=== PATIENT | female | born 1995 | race Caucasian/White ===

== ENCOUNTER 2017-05-27 09:30 | Emergency (ER) | payer BC ==
[~2017-05-27] VITALS: Ht 167.6 cm; Wt 77.0 kg
[2017-05-27 09:34] VITALS: BP 140/89; PULSE 114; RESP 20; TEMP 99; O2SAT 99
--- NOTE | 2017-05-27 10:28 | PD ---
HPI Chief Complaint: GI Complaint Time Seen by Provider: 10:28 Travel History International Travel<30 days: No Contact w/Intl Traveler<30days: No Traveled to known affect area: No History of Present Illness HPI 22-year-old female came to the emergency room for not feeling well and flulike symptoms. Patient says that she had the worst hangover however yesterday after she drank a lot of alcohol the day before. She was vomiting the entire day yesterday. Her last vomit was last night. Morning when she woke up her entire body was aching and she was just not feeling well. Patient is awake and answering questions appropriately. Upon asking she says there is no chance she could be . Patient was tachycardic in triage. She is otherwise a healthy person. [facility] Past Medical History Narrative Medical List of her past medical, surgical, social and family history is from the nursing note. ?: Not LMP: 05/24/17 Social History Alcohol Use: Yes Tobacco Use: No Allergies-Medications (Allergen,Severity, Reaction): Coded Allergies: No Known Allergies (Unverified , 05/27/17) Comments No known drug allergies. Reported Meds & Prescriptions Reported Meds & Active Scripts Active Omeprazole 20 Mg Tab 20 Mg PO DAILY Narrative Medication List of her home medications reviewed from the nursing note. Review of Systems Except as stated in HPI: all other systems reviewed are Neg Gastrointestinal: Positive: Nausea, Vomiting Musculoskeletal: Positive: Myalgias Physical Exam Narrative GENERAL: Awake, alert, moderate distress SKIN: Focused skin assessment warm/dry. HEAD: Atraumatic. Normocephalic. EYES: Pupils equal and round. No scleral icterus. No injection or drainage. ENT: No nasal bleeding or discharge. Dry mucous membrane NECK: Trachea midline. No JVD. CARDIOVASCULAR: Regular rate and rhythm. No murmur appreciated. RESPIRATORY: No accessory muscle use. Clear to auscultation. Breath sounds equal bilaterally. GASTROINTESTINAL: Abdomen soft, non-tender, nondistended. Hepatic and splenic margins not palpable. MUSCULOSKELETAL: No obvious deformities. No clubbing. No cyanosis. No edema. NEUROLOGICAL: Awake and alert. No obvious cranial nerve deficits. Motor grossly within normal limits. Normal speech. PSYCHIATRIC: Appropriate mood and affect; insight and judgment normal. Data Data Last Documented VS Vital Signs Date Time Temp Pulse Resp B/P (MAP) Pulse Ox O2 Delivery O2 Flow Rate FiO2 05/27/17 13:38 100 05/27/17 10:54 18 05/27/17 10:54 Room Air 05/27/17 09:34 99.0 114 140/89 (106) Orders Orders Complete Blood Count With Diff (05/27/17 10:34) Comprehensive Metabolic Panel (05/27/17 10:34) Urinalysis - C+S If Indicated (05/27/17 10:34) Iv Access Insert/Monitor (05/27/17 10:34) Ecg Monitoring (05/27/17 10:34) Oximetry (05/27/17 10:34) Ondansetron Inj (Zofran Inj) (05/27/17 10:45) Sodium Chlor 0.9% 1000 Ml Inj (Ns 1000 M (05/27/17 10:34) Sodium Chloride 0.9% Flush (Ns Flush) (05/27/17 10:45) Ed Urine Pregnancytest Poc (05/27/17 10:34) Sodium Chlor 0.9% 1000 Ml Inj (Ns 1000 M (05/27/17 10:45) Ed Discharge Order (05/27/17 12:26) Labs Laboratory Tests Test 05/27/17 10:40 White Blood Count 25.3 TH/MM3 Red Blood Count 4.30 MIL/MM3 Hemoglobin 12.9 GM/DL Hematocrit 37.2 % Mean Corpuscular Volume 86.5 FL Mean Corpuscular Hemoglobin 30.0 PG Mean Corpuscular Hemoglobin Concent 34.7 % Red Cell Distribution Width 12.8 % Platelet Count 292 TH/MM3 Mean Platelet Volume 7.1 FL Neutrophils (%) (Auto) 91.5 % Lymphocytes (%) (Auto) 3.7 % Monocytes (%) (Auto) 4.5 % Eosinophils (%) (Auto) 0.1 % Basophils (%) (Auto) 0.2 % Neutrophils # (Auto) 23.2 TH/MM3 Lymphocytes # (Auto) 0.9 TH/MM3 Monocytes # (Auto) 1.1 TH/MM3 Eosinophils # (Auto) 0.0 TH/MM3 Basophils # (Auto) 0.0 TH/MM3 CBC Comment DIFF FINAL Differential Comment Urine Color YELLOW Urine Turbidity CLEAR Urine pH 6.5 Urine Specific [place] 1.025 Urine Protein TRACE mg/dL Urine Glucose (UA) NEG mg/dL Urine Ketones NEG mg/dL Urine Occult Blood NEG Urine Nitrite NEG Urine Bilirubin NEG Urine Urobilinogen LESS THAN 2.0 MG/DL Urine Leukocyte Esterase NEG Urine RBC LESS THAN 1 /hpf Urine WBC 1 /hpf Urine Squamous Epithelial Cells 6 /hpf Urine Mucus FEW /lpf Microscopic Urinalysis Comment CULT NOT INDICATED Blood Urea Nitrogen 13 MG/DL Creatinine 0.96 MG/DL Random Glucose 104 MG/DL Total Protein 7.0 GM/DL Albumin 3.5 GM/DL Calcium Level 9.1 MG/DL Alkaline Phosphatase 78 U/L Aspartate Amino Transf (AST/SGOT) 21 U/L Alanine Aminotransferase (ALT/SGPT) 28 U/L Total Bilirubin 0.7 MG/DL Sodium Level 135 MEQ/L Potassium Level 3.9 MEQ/L Chloride Level 102 MEQ/L Carbon Dioxide Level 23.5 MEQ/L Anion Gap 10 MEQ/L Estimat Glomerular Filtration Rate 73 ML/MIN MDM Medical Decision Making Medical Screen Exam Complete: Yes Emergency Medical Condition: Yes Medical Record Reviewed: Yes Differential Diagnosis Alcoholic gastritis, dehydration, electrolyte abnormality Narrative Course 12:40 PM blood test results are back. Patient has significant leukocytosis with left shift which I think is stress induced from all the vomiting. Electrolyte are within normal limit. Patient was given 2 L of IV fluid bolus and Zofran. I went back and reassessed her and she says she is feeling much better. I'm comfortable discharging her home with prescription and instructions. Procedures EKG Prior to Arrival: No Diagnosis Primary Impression: Alcoholic gastritis Qualified Codes: K29.20 - Alcoholic gastritis without bleeding Additional Impressions: Dehydration Leukocytosis Qualified Codes: D72.829 - Elevated white blood cell count, unspecified Referrals: Primary Care Physician Additional Instructions: Do not drink alcohol for the next few days. Do not eat anything acidic or spicy. Eat bland diet for next 24-48 hours. Take the medication as per the prescription direction. Return to ER if condition worsens or any other new concerns. Lites follow-up with the primary care. Med/Other Pt SpecificInfo: Prescription(s) given Scripts Omeprazole (Omeprazole) 20 Mg Tab 20 MG PO DAILY, #30 TAB 0 Refills Prov: Dian Avalos MD 05/27/17 Disposition: 01 DISCHARGE HOME Condition: Stable Dian Avalos MD May 27, 2017 10:28
[2017-05-27] MEDS ORDERED: SODIUM CHLOR 0.9% 1000 ML INJ 1,000 ML IV SCH (10:34)
[2017-05-27] MEDS ORDERED: SODIUM CHLORIDE 0.9% FLUSH 10 ML FLUSH IV FLUSH PRN (10:45)
[2017-05-27] MEDS ORDERED: SODIUM CHLOR 0.9% 1000 ML INJ 1,000 ML IV ONE (10:45)
[2017-05-27] MEDS ORDERED: ONDANSETRON HCL 4 MG/2 ML VIAL IVP ONE (10:45)
[2017-05-27 10:54] VITALS: O2SAT 99
[2017-05-27 11:03] LABS: AUTOMATED NEUTROPHIL # 23.2 TH/MM3 (1.8-7.7); BASOPHIL % 0.2 % (0.0-2.0); EOSINOPHIL % 0.1 % (0.0-4.0); HEMATOCRIT 37.2 % (35.0-46.0); HEMOGLOBIN 12.9 GM/DL (11.6-15.3); LYMPH % 3.7 % (9.0-44.0); LYMPHOCYTE # 0.9 TH/MM3 (1.0-4.8); MEAN CELL VOLUME 86.5 FL (80.0-100.0); MEAN CORPUSCULAR HGB CONC 34.7 % (32.0-36.0); MEAN PLATELET VOLUME 7.1 FL (7.0-11.0); MONO % 4.5 % (0.0-8.0); MONOCYTE # 1.1 TH/MM3 (0-0.9); NEUT % 91.5 % (16.0-70.0); PLATELET COUNT 292 TH/MM3 (150-450); RED CELL DISTRIBUTION WIDTH 12.8 % (11.6-17.2); WHITE BLOOD COUNT 25.3 TH/MM3 (4.0-11.0)
[2017-05-27 11:15] LABS: BILIRUBIN, URINE NEG (NEG); BLOOD, URINE NEG (NEG); GLUCOSE,URINE NEG (NEG); KETONE, URINE NEG (NEG); MUCUS URINE FEW /lpf (OCC); NITRITE,URINE NEG (NEG); PH, URINE 6.5 (5.0-8.5); SQUAMOUS EPITHELIAL CELL URINE 6 /hpf (0-5); URINE COLOR YELLOW (YELLW/STRAW); URINE LEUKOCYTE ESTERASE NEG (NEG)
[2017-05-27 11:19] LABS: ALBUMIN 3.5 GM/DL (3.4-5.0); AST (GOT) 21 U/L (15-37); BICARBONATE 23.5 MEQ/L (21.0-32.0); BLOOD UREA NITROGEN 13 MG/DL (7-18); CALCIUM 9.1 MG/DL (8.5-10.1); CHLORIDE 102 MEQ/L (98-107); CREATININE 0.96 MG/DL (0.50-1.00); GLOMERULAR FILTRATION RATE 73 ML/MIN (>89); GLUCOSE,RANDOM 104 MG/DL (74-106); SODIUM (NA) 135 MEQ/L (136-145)
[2017-05-27 11:20] LABS: ALT (GPT) 28 U/L (10-53)
[2017-05-27 11:22] LABS: ALKALINE PHOSPHATASE 78 U/L (45-117); TOTAL BILIRUBIN ADULT 0.7 MG/DL (0.2-1.0)
[2017-05-27] MEDS ORDERED: OMEP20TA93 PO (12:37)
== END 2017-05-27 13:41 | disposition home or self-care (01) ==
LOC: NEPE 09:30
DX: K29.20 Alcoholic gastritis without bleeding (principal); E86.0 Dehydration; D72.829 Elevated white blood cell count, unspecified; M79.1 Myalgia; Z79.899 Other long term (current) drug therapy
CPT/HCPCS: 80053; 81001; 84703; 85025; 96374; 99284; J2405; J7030